=== PATIENT | male | born 1940 | race Caucasian/White ===

== ENCOUNTER 2016-10-04 10:53 | Emergency (ER) | payer MEDICARE, OTHER ==
[2016-10-04 10:58] VITALS: TEMP 98.5; O2SAT 98
--- NOTE | 2016-10-04 12:25 | C.PDOC ---
History Of Present Illness 75 year old male presents to the ED with complaints of a painful, red, swollen area to his left cheek for the past 3-4 days. Patient states it first started under the left eye then it traveled down to the left lower cheek. Denies fever, chills, vomiting, mouth pain, or any other complaints at this time. Time Seen by Provider: 10/04/16 11:42 Chief Complaint (Nursing): Abnormal Skin Integrity History Per: Patient History/Exam Limitations: no limitations Onset/Duration Of Symptoms: Days Current Symptoms Are (Timing): Still Present Location Of Injury: Left: Face Quality Of Symptoms: Painful, Swollen Severity: Mild Past Medical History Reviewed: Historical Data, Nursing Documentation, Vital Signs Vital Signs: Last Vital Signs Temp 98.5 F 10/04/16 10:56 Pulse 85 10/04/16 12:49 Resp 18 10/04/16 12:49 BP 132/75 10/04/16 12:49 Pulse Ox 98 10/04/16 12:49 Family History: States: Unknown Family Hx - Social History Hx Alcohol Use: No Hx Substance Use: No - Immunization History Hx Tetanus Toxoid Vaccination: No Hx Influenza Vaccination: No Hx Pneumococcal Vaccination: No Review Of Systems Except As Marked, All Systems Reviewed And Found Negative. Constitutional: Negative for: Fever, Chills Gastrointestinal: Negative for: Vomiting Skin: Positive for: Other (+Red, painful, swollen region to the left face) Physical Exam - Physical Exam Appears: Non-toxic, No Acute Distress Skin: Warm, Dry, Other (+ 6.0 x 4.0 cm area of erythema to the left cheek with mild tenderness. No induration or fluctuence.) Head: Atraumatic, Normacephalic Eye(s): bilateral: Normal Inspection, PERRL, EOMI Oral Mucosa: Moist Lips: Normal Appearing Neck: Supple Chest: Symmetrical Cardiovascular: No Friction Rub, No Murmur Respiratory: Normal Breath Sounds, No Accessory Muscle Use, No Rales, No Rhonchi , No Wheezing Gastrointestinal/Abdominal: Soft, No Tenderness Back: Normal Inspection, No CVA Tenderness Extremity: Normal ROM, No Swelling Neurological/Psych: Oriented x3, Normal Speech, Normal Cognition, Normal Motor Gait: Steady ED Course And Treatment O2 Sat by Pulse Oximetry: 98 (Room air) Pulse Ox Interpretation: Normal Medical Decision Making Medical Decision Making: The patient was examined by Dr. Moore who agrees this is a cellulitis. Will change antibiotics from Keflex to clindamycin. Plan: -Doxycycline Disposition - Disposition Referrals: Pa Erickson MD [Primary Care Provider] - Disposition: HOME/ ROUTINE Disposition Time: 12:35 Condition: GOOD Additional Instructions: Follow up with the medical doctor within 1-2 days for wound check. return if worsened. Prescriptions: Doxycycline Hyclate 100 mg PO Q12 #19 tab Ibuprofen [Motrin] 600 mg PO TID #21 tab Instructions: Cellulitis (ED) Print Language: KYRGYZ - Clinical Impression Clinical Impression: Cellulitis - PA / PICK UP OPERATOR / Resident Statement MD/DO has reviewed & agrees with the documentation as recorded. - Scribe Statement The provider has reviewed the documentation as recorded by the Scribe Gudelia Ragsdale. All medical record entries made by the Scribe were at my direction and personally dictated by me. I have reviewed the chart and agree that the record accurately reflects my personal performance of the history, physical exam, medical decision making, and the department course for this patient. I have also personally directed, reviewed, and agree with the discharge instructions and disposition.
--- NOTE | 2016-10-04 12:35 | C.PDOC ---
Time Seen by Provider: 10/04/16 11:42 Chief Complaint (Nursing): Abnormal Skin Integrity Past Medical History Vital Signs: Last Vital Signs Temp 98.5 F 10/04/16 10:56 Pulse 98 H 10/04/16 10:56 Resp 16 10/04/16 10:56 BP 129/80 10/04/16 10:56 Pulse Ox 98 10/04/16 10:56 - Social History Hx Alcohol Use: No Hx Substance Use: No - Immunization History Hx Tetanus Toxoid Vaccination: No Hx Influenza Vaccination: No Hx Pneumococcal Vaccination: No ED Course And Treatment O2 Sat by Pulse Oximetry: 98 Disposition - Disposition Referrals: Pa Erickson MD [Primary Care Provider] - Disposition: HOME/ ROUTINE Disposition Time: 12:35 Condition: GOOD Additional Instructions: Follow up with the medical doctor within 1-2 days for wound check. return if worsened. Prescriptions: Doxycycline Hyclate 100 mg PO Q12 #19 tab Ibuprofen [Motrin] 600 mg PO TID #21 tab Instructions: Cellulitis (ED) Print Language: POLISH - Clinical Impression Clinical Impression: Cellulitis
[2016-10-04 12:49] VITALS: BP 132/75; PULSE 85; RESP 18
== END 2016-10-04 12:51 | disposition home or self-care (01) ==
LOC: SUPCPDRO 10:53 → C.ER 10:53
DX: L03.211 Cellulitis of face (principal)